=== PATIENT | female | born 1995 | race Caucasian/White ===

== ENCOUNTER 2018-12-27 21:19 | Emergency (ER) | payer BC, MEDICAID ==
[~2018-12-27] VITALS: Ht 157.5 cm; Wt 70.0 kg
[2018-12-27 22:02] VITALS: BP 121/73; PULSE 70; RESP 18; Ht 157.5 cm; Wt 70.0 kg
[2018-12-28] MEDS ORDERED: IBUPROFEN 800 MG TAB PO ONE (01:00)
[2018-12-28] MEDS ORDERED: IBUP-1542 PO (01:29)
--- NOTE | 2018-12-28 01:29 | ERD ---
ER Documentation Chief Complaint Chief Complaint back pain since Sunday; plays volleyball, no injury/fall/dysuria HPI This is a 23-year-old female presents to the ER for evaluation of back pain. The patient states that she was lifting heavy weights and was playing volleyball. The patient localized the pain to the left portion of her back and states is worse with movement of her back. She denies any dysuria, fevers, painful urination or frequent urination. ROS All systems reviewed and are negative except as per history of present illness. Allergies Allergies: Coded Allergies: No Known Allergy (Unverified , 12/27/18) PMhx/Soc Medical and Surgical Hx: pt denies Medical Hx, pt denies Surgical Hx Hx Alcohol Use: No Hx Substance Use: No Hx Tobacco Use: No Smoking Status: Never smoker Physical Exam Vitals Vital Signs Date Temp Pulse Resp B/P (MAP) Pulse Ox O2 O2 Flow FiO2 Time Delivery Rate 12/27/18 98.4 70 18 121/73 100 22:02 (89) Physical Exam Const: No acute distress Head: Atraumatic Eyes: Normal Conjunctiva ENT: Normal External Ears, Nose and Mouth. Neck: Full range of motion. No meningismus. Resp: Clear to auscultation bilaterally Cardio: Regular rate and rhythm, no murmurs Abd: Soft, non tender, non distended. Normal bowel sounds Skin: No petechiae or rashes Back: Mild tenderness to palpation of the paraspinal muscles of the thoracic spine on the left, no midline or flank tenderness Ext: No cyanosis, or edema Neur: Awake and alert Psych: Normal Mood and Affect Results 24 hrs Laboratory Tests Test 12/28/18 01:12 12/28/18 01:17 Bedside Urine pH (LAB) 5.5 Bedside Urine Protein (LAB) Negative Bedside Urine Glucose (UA) Negative Bedside Urine Ketones (LAB) Negative Bedside Urine Blood Negative Bedside Urine Nitrite (LAB) Negative Bedside Urine Leukocyte Esterase (L Negative POC Beta HCG, Qualitative NEGATIVE Current Medications Medications Dose Sig/Alexei Start Time Status Last (Trade) Ordered Route PRN Stop Time Admin Dose Reason Admin Ibuprofen 800 mg ONCE ONCE 12/28/18 DC 12/28/18 (Motrin) PO 01:00 01:16 12/28/18 01:01 Procedures/MDM This 23-year-old female presents the ER for evaluation of back pain. She has been lifting heavy weights and has been playing volleyball. Her urinalysis is normal, hCG is negative. She did have some tenderness to palpation once and her pain is worse with movement. She likely has a muscle strain and was given Motrin and will be discharged home with a prescription for Motrin. Departure Diagnosis: Primary Impression: Thoracic myofascial strain Condition: Stable JIMBO REID DO Dec 28, 2018 01:29
== END 2018-12-28 01:51 | disposition home or self-care (01) ==
LOC: E/R 21:19
DX: X50.0XXA Overexertion from strenuous movement or load, initial encounter (principal); Y92.89 Other specified places as the place of occurrence of the external cause
CPT/HCPCS: 81003; 81025; Z7502; Z7610; 99282